=== PATIENT | female | born 1970 | race Caucasian/White ===

== ENCOUNTER 2019-10-25 17:25 | Emergency (ER) | payer BC ==
[~2019-10-25] VITALS: Ht 172.7 cm; Wt 84.1 kg
[2019-10-25 17:33] VITALS: BP 116/76; TEMP 98.3
[2019-10-25] MEDS ORDERED: FLEXERIL 1010 MG/TAB PO (19:37)
[2019-10-25 20:15] VITALS: PULSE 74
== END 2019-10-25 20:15 | disposition home or self-care (01) ==
LOC: COL.ER 17:25
DX: S09.90XA Unspecified injury of head, initial encounter (principal); S16.1XXA Strain of muscle, fascia and tendon at neck level, initial encounter; S80.912A Unspecified superficial injury of left knee, initial encounter; S90.31XA Contusion of right foot, initial encounter; R40.2410 Glasgow coma scale score 13-15, unspecified time; W11.XXXA Fall on and from ladder, initial encounter; Y92.009 Unspecified place in unspecified non-institutional (private) residence as the place of occurrence of the external cause
CPT/HCPCS: L1846

== ENCOUNTER 2019-11-17 09:00 | Outpatient (RCR) | payer BC ==
[~2019-11-17 09:00] MED LIST: FLEXERIL 1010 MG/TAB PO
== END 2020-02-01 | disposition home or self-care (01) ==
LOC: WSC
DX: S72.422A Displaced fracture of lateral condyle of left femur, initial encounter for closed fracture (principal)